=== PATIENT | male | born 1985 | race Caucasian/White ===

== ENCOUNTER 2016-10-05 23:06 | Emergency (ER) | payer OTHER ==
[~2016-10-05] VITALS: Ht 175.3 cm; Wt 82.6 kg
[2016-10-05 23:08] VITALS: BP 125/81
[2016-10-05] MEDS ORDERED: ONDANSETRON 4 MG/2 ML VIAL IVP ONE (23:40)
[2016-10-05] MEDS ORDERED: NACL 0.9% 1,000 ML IV ONE (23:40)
[2016-10-05] MEDS ORDERED: LORazepam 2 MG/ML VIAL IVP ONE (23:40)
[2016-10-06 01:25] LABS: AMPHETAMINE, URINE NEG. ng/ml (NEG <=1000); BARBITURATE, URINE NEG. ng/ml (NEG <=200); BENZODIAZEPINE, URINE NEG. ng/mL (NEG <=200); CANNABINOID, URINE POS. ng/mL (NEG <=50); COCAINE, URINE NEG. ng/mL (NEG <=300); OPIATE, URINE NEG. ng/mL (NEG <=2000); PHENCYCLIDINE SCREEN,URINE NEG. ng/mL (NEG <=25)
[2016-10-06 01:42] VITALS: BP 140/80
== END 2016-10-06 01:42 | disposition home or self-care (01) ==
LOC: MED 23:06
DX: R11.2 Nausea with vomiting, unspecified (principal); R51 Headache; T50.995A Adverse effect of other drugs, medicaments and biological substances, initial encounter; F12.929 Cannabis use, unspecified with intoxication, unspecified; R03.0 Elevated blood-pressure reading, without diagnosis of hypertension; Y92.89 Other specified places as the place of occurrence of the external cause
CPT/HCPCS: 70450; 80305; 93005; 96361; 96374; 96375; 99285; J2060; J2405; J7030; C1758